=== PATIENT | female | born 1970 | race Caucasian/White ===

== ENCOUNTER → 2016-10-25 | Outpatient (CLI) | payer OTHER | LOC: RAD 09:49 | PROVIDERS: ATTEND Specialist | DX: M50.20 Other cervical disc displacement, unspecified cervical region (principal); M51.06 Intervertebral disc disorders with myelopathy, lumbar region | CPT/HCPCS: 72141; 72148 ==

== ENCOUNTER 2017-01-17 19:13 | Emergency (ER) | payer OTHER ==
[2017-01-17] MEDS ORDERED: PROMETHAZINE HCL 25 MG TABLET PO ONE (20:21)
[2017-01-17] MEDS ORDERED: KETOROLAC TROMETHAMINE 60 MG/2 ML SDV IM ONE (20:21)
--- NOTE | 2017-01-17 20:27 | ER Document Report ---
ED Medical Screen (RME) - General Chief Complaint: Flank Pain Stated Complaint: FLANK PAIN Notes: Patient experienced sudden onset of severe pain in her right flank and back area radiating around to the right abdomen about 6:45 PM this evening. She's been nauseated but hasn't vomited. Has a history of a kidney stone once previously with similar symptoms. Patient says the pain is easing off some at this time. No fevers. 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 She stopped her hormones about 2 weeks ago as her was about to deploy. She doesn't think it's likely that she could be , but there is the slightest possibility that she could be. TRAVEL OUTSIDE OF THE [place] IN LAST 30 DAYS: No - Related Data Allergies/Adverse Reactions: No Known Allergies Allergy (Unverified 01/17/17 19:29) Past Medical History Renal/ Medical History: Denies: Hx Peritoneal Dialysis Psychiatric Medical History: Reports: Hx Anxiety Past Surgical History: Reports: Hx Thyroid Surgery - Thyroid nodule removal Physical Exam - Vital signs Vitals: Temp Pulse Resp BP Pulse Ox 97.6 F 74 18 132/77 H 100 01/17/17 19:29 01/17/17 19:29 01/17/17 19:29 01/17/17 19:29 01/17/17 19:29 Course - Vital Signs Vital signs: Temp Pulse Resp BP Pulse Ox 97.6 F 74 18 132/77 H 100 01/17/17 19:29 01/17/17 19:29 01/17/17 19:29 01/17/17 19:29 01/17/17 19:29
[2017-01-17 20:45] LABS: APPEARANCE,URINE SLIGHTLY-CLOUDY; BILIRUBIN,URINE NEGATIVE (NEGATIVE); GLUCOSE, URINE NEGATIVE (NEGATIVE); KETONES,URINE TRACE mg/dL (NEGATIVE); LEUKOCYTE ESTERASE,URINE NEGATIVE (NEGATIVE); NITRITE,URINE NEGATIVE (NEGATIVE); PROTEIN,URINE 30 mg/dL (NEGATIVE); URINE SPECIFIC GRAVITY 1.021; UROBILINOGEN,URINE NEGATIVE mg/dL (<2.0)
--- NOTE | 2017-01-17 22:27 | ER Document Report ---
ED General - General Chief Complaint: Flank Pain Stated Complaint: FLANK PAIN Notes: Patient is a 46 show female presents with complaint of back pain to start around 7 PM. She says she came straight to ER. Pain then started radiating to the right and around the right flank. She received a shot of Toradol in triage. She says pain is much improved. She has some nausea but no vomiting. No fevers. She's never had pain like this. No history of abdominal surgeries. She does have a history of a liver hemangioma. No dysuria. No urinary frequency. She is not currently on her menstrual period. TRAVEL OUTSIDE OF THE [place] IN LAST 30 DAYS: No - Related Data Allergies/Adverse Reactions: No Known Allergies Allergy (Unverified 01/17/17 19:29) Past Medical History - Social History Smoking Status: Never Smoker Frequency of alcohol use: None Drug Abuse: None Family History: CVA, Other - [place] Patient has suicidal ideation: No Patient has homicidal ideation: No Renal/ Medical History: Denies: Hx Peritoneal Dialysis Psychiatric Medical History: Reports: Hx Anxiety Past Surgical History: Reports: Hx Thyroid Surgery - Thyroid nodule removal - Immunizations Hx Diphtheria, Pertussis, Tetanus Vaccination: Yes Review of Systems - Review of Systems Notes: My Normal Review Basic REVIEW OF SYSTEMS: CONSTITUTIONAL : Denies fever, chills, or sweats. Denies recent illness. RESPIRATORY: Denies cough, cold, or chest congestion. Denies shortness of breath, difficulty breathing, or wheezing. GASTROINTESTINAL: Denies abdominal pain. Denies nausea, vomiting, or diarrhea. Denies constipation. Last BM: GENITOURINARY: Right flank pain. FEMALE GENITOURINARY: Denies vaginal bleeding, abnormal or irregular periods. MUSCULOSKELETAL: Back pain SKIN: Denies rash or skin lesions. NEUROLOGICAL: Denies altered mental status or loss of consciousness. ALL OTHER SYSTEMS REVIEWED AND NEGATIVE. Physical Exam - Vital signs Vitals: Temp Pulse Resp BP Pulse Ox 97.6 F 74 18 132/77 H 100 01/17/17 19:29 01/17/17 19:29 01/17/17 19:29 01/17/17 19:29 01/17/17 19:29 - Notes Notes: General Appearance: Well nourished, alert, cooperative, no acute distress, no obvious discomfort. Well-appearing. Vitals: reviewed, See vital signs table. Head: no swelling or tenderness to the head Eyes: PERRL, EOMI, Conjuctiva clear Mouth: No decreasd moisturealy Lungs: No wheezing, No rales, No rhonci, No accessory muscle use, good air exchange bilaterally. Heart: Normal rate, Regular rythm, No murmur, no rub Abdomen: Normal BS, soft, No rigidity, very mild right flank pain to palpation. No reproducible anterior Abdominal tenderness to palpation, No guarding, no rebound, no abdominal masses, no organomegaly Back: No reproducible pain to palpation of the back. No rashes. Extremities: strength 5/5 in all extremities, good pulses in all extremities, no swelling or tenderness in the extremities, no edema. Skin: warm, dry, appropriate color, no rash Neuro: speech clear, oriented x 3, normal affect, responds appropriately to questions. Course - Vital Signs Vital signs: Temp Pulse Resp BP Pulse Ox 97.6 F 74 18 132/77 H 100 01/17/17 19:29 01/17/17 19:29 01/17/17 19:29 01/17/17 19:29 01/17/17 19:29 - Laboratory Result Diagrams: 01/17/17 23:30 01/17/17 23:30 Laboratory results interpreted by me: 01/17/17 01/17/17 20:24 23:30 Seg Neutrophils % 79.3 H Urine Protein 30 H Urine Ketones TRACE H Urine Blood LARGE H Urine Ascorbic Acid 40 H - Transfer of Care Notes: 01/18/17 00:33 The exact cause of the patient's pain is 100% clear. She does have some hematuria. Her pain is resolved. I suspect that she may have passed a small kidney stone. CT scan currently is negative. Her blood work is completely normal. I feel she is safe to be discharged home. I encourage her to follow up with her primary care doctor for reevaluation and repeat urinalysis to make sure that the blood is Cleared from her urine. Encourage return to ER immediately if she has worsening recurrent pain, vomiting, fevers, or feels unwell. Patient agrees with plan and will be discharged home. Dictation of this chart was performed using voice recognition software; therefore, there may be some unintended grammatical errors. Discharge - Discharge Clinical Impression: Flank pain, Hematuria Condition: Good Disposition: HOME, SELF-CARE Instructions: Oral Narcotic Medication ([facility]) Additional Instructions: Please follow up with your doctor on Thursday or Thursday for close reevaluation. Please return to the ER immediately if you develop fevers, worsening pain, vomiting, or feel unwell. Please have your doctor do a repeat urinalysis to make sure the blood in your urine is clearing. You can take the [place] as 1 tablet every 4 hours as needed for severe pain. Prescriptions: Ketorolac Tromethamine [Toradol 10 mg Tablet] 10 mg PO Q8HP PRN #12 tablet PRN Reason: Referrals: HELLEN POST MD [Primary Care Provider] - 01/19/17
[2017-01-17 23:57] LABS: ABSOLUTE LYMPHOCYTES (AUTO) 1.1 10^3/uL (0.5-4.7); ABSOLUTE MONOCYTES (AUTO) 0.6 10^3/uL (0.1-1.4); ABSOLUTE NEUT (AUTO) 6.6 10^3/uL (1.7-8.2); BASOPHILS % (AUTO) 0.2 % (0-2); EOSINOPHILS % (AUTO) 0.3 % (0-6); HEMATOCRIT 38.7 % (36.0-47.0); HEMOGLOBIN 13.2 g/dL (12.0-15.5); HGB HCT DIFFERENCE 0.9; LYMPHOCYTES % (AUTO) 13.5 % (13-45); MEAN CORPUSCULAR HEMOGLOBIN 31.2 pg (27.0-33.4); MEAN CORPUSCULAR HGB CONC 34.2 g/dL (32.0-36.0); MEAN CORPUSCULAR VOLUME 91 fl (80-97); MONOCYTES % (AUTO) 6.7 % (3-13); RED BLOOD COUNT 4.24 10^6/uL (3.72-5.28); RED CELL DISTRIBUTION WIDTH 12.1 % (11.5-14.0); SEGMENTED NEUTROPHILS % (AUTO) 79.3 % (42-78); WHITE BLOOD COUNT 8.3 10^3/uL (4.0-10.5)
[2017-01-18 00:09] LABS: ALANINE AMINOTRANSFERASE 26 U/L (9-52); ALBUMIN 4.5 g/dL (3.5-5.0); ALKALINE PHOSPHATASE 41 U/L (38-126); ANION GAP 12 (5-19); ASPARTATE AMINO TRANSFERASE 22 U/L (14-36); BILIRUBIN,TOTAL 1.3 mg/dL (0.2-1.3); BLOOD UREA NITROGEN 19 mg/dL (7-20); CALCIUM 9.1 mg/dL (8.4-10.2); CARBON DIOXIDE 27 mmol/L (22-30); CHLORIDE 102 mmol/L (98-107); CREATININE RESULT 0.63 mg/dL (0.52-1.25); GLUCOSE 90 mg/dL (75-110); POTASSIUM 4.1 mmol/L (3.6-5.0); SODIUM 140.8 mmol/L (137-145); TOTAL PROTEIN 6.9 g/dL (6.3-8.2)
[2017-01-18] MEDS ORDERED: HYDROCODONE/ACETAMINOPHEN 5-325 MG 6 TAB/DSPK PO PRN (00:32)
[2017-01-18] MEDS ORDERED: ONDANSETRON ODT 4 MG TAB (6 TAB/DSPK) PO PRN (00:32)
[2017-01-18 00:44] VITALS: BP 104/69
== END 2017-01-18 00:46 | disposition home or self-care (01) ==
LOC: ER 19:13
DX: R10.9 Unspecified abdominal pain (principal); R31.9 Hematuria, unspecified
CPT/HCPCS: 99284; 96372; 36415; 87086; 85025; 81025; 80053; 81001; 76380; J1885

== ENCOUNTER 2017-02-13 01:20 | Emergency (ER) | payer OTHER ==
[2017-02-13] MEDS ORDERED: NORMAL SALINE 1000 ML 1,000 ML IV ONE ×2 (01:31→07:27)
[2017-02-13] MEDS ORDERED: ONDANSETRON HCL INJ/PF 4 MG/2 ML SDV IV ONE ×3 (01:31→07:27)
[2017-02-13 02:07] LABS: ABSOLUTE EOSINOPHILS # (AUTO) 0.1 10^3/uL (0.0-0.6); ABSOLUTE LYMPHOCYTES (AUTO) 1.8 10^3/uL (0.5-4.7); ABSOLUTE MONOCYTES (AUTO) 1.5 10^3/uL (0.1-1.4); ABSOLUTE NEUT (AUTO) 15.7 10^3/uL (1.7-8.2); BASOPHILS % (AUTO) 0.2 % (0-2); EOSINOPHILS % (AUTO) 0.3 % (0-6); HEMATOCRIT 39.3 % (36.0-47.0); HEMOGLOBIN 13.1 g/dL (12.0-15.5); LYMPHOCYTES % (AUTO) 9.4 % (13-45); MEAN CORPUSCULAR HEMOGLOBIN 30.6 pg (27.0-33.4); MEAN CORPUSCULAR HGB CONC 33.3 g/dL (32.0-36.0); MEAN CORPUSCULAR VOLUME 92 fl (80-97); MONOCYTES % (AUTO) 7.6 % (3-13); RED BLOOD COUNT 4.28 10^6/uL (3.72-5.28); RED CELL DISTRIBUTION WIDTH 12.2 % (11.5-14.0); SEGMENTED NEUTROPHILS % (AUTO) 82.5 % (42-78); WHITE BLOOD COUNT 19.1 10^3/uL (4.0-10.5)
[2017-02-13 02:24] LABS: ALANINE AMINOTRANSFERASE 28 U/L (9-52); ALBUMIN 4.2 g/dL (3.5-5.0); ALKALINE PHOSPHATASE 43 U/L (38-126); ANION GAP 13 (5-19); ASPARTATE AMINO TRANSFERASE 19 U/L (14-36); BILIRUBIN,DIRECT 0.3 mg/dL (0.0-0.4); BILIRUBIN,TOTAL 1.2 mg/dL (0.2-1.3); BLOOD UREA NITROGEN 22 mg/dL (7-20); CALCIUM 9.3 mg/dL (8.4-10.2); CARBON DIOXIDE 27 mmol/L (22-30); CHLORIDE 101 mmol/L (98-107); CREATININE RESULT 0.94 mg/dL (0.52-1.25); GLUCOSE 136 mg/dL (75-110); POTASSIUM 4.1 mmol/L (3.6-5.0); SODIUM 140.5 mmol/L (137-145); TOTAL PROTEIN 6.7 g/dL (6.3-8.2)
[2017-02-13] MEDS ORDERED: ACETAMINOPHEN 325 MG TABLET PO ONE (02:31)
[2017-02-13 02:49] LABS: APPEARANCE,URINE CLOUDY; BILIRUBIN,URINE SMALL (NEGATIVE); GLUCOSE, URINE NEGATIVE (NEGATIVE); KETONES,URINE NEGATIVE (NEGATIVE); PROTEIN,URINE 30 mg/dL (NEGATIVE); URINE SPECIFIC GRAVITY 1.034; UROBILINOGEN,URINE NEGATIVE mg/dL (<2.0)
[2017-02-13 02:50] LABS: LEUKOCYTE ESTERASE,URINE NEGATIVE (NEGATIVE); NITRITE,URINE NEGATIVE (NEGATIVE); RBC,URINE 0-1 /HPF; WBC,URINE NONE SEEN /HPF
[2017-02-13] MEDS ORDERED: MORPHINE SULFATE 10 MG/ML INJ IV ONE ×2 (04:16→06:17)
--- NOTE | 2017-02-13 04:17 | ER Document Report ---
ED GI/ - General Mode of Arrival: Ambulatory Information source: Patient TRAVEL OUTSIDE OF THE [place] IN LAST 30 DAYS: No <CARMEN LINDER - Last Filed: 02/13/17 07:23> <JC GILLILAND - Last Filed: 02/13/17 10:02> - General Chief Complaint: Vomiting/Diarrhea Stated Complaint: ABDOMINAL PAIN Time Seen by Provider: 02/13/17 03:55 Notes: Pt is a 46 year old female who presents to the ER today for abdominal pain in the right lower quadrant radiating to the right lower back that began today and is getting worse. She has had multiple episodes of nausea, vomiting and diarrhea with the pain. She denies fever or chills that she knows of. She admits to 1 month of pressure with urination, but denies abnormal vaginal discharge or dysuria, hematuria. She has a history of kidney stones but states that this does not feel like that. (CARMEN LINDER) - Related Data Allergies/Adverse Reactions: No Known Allergies Allergy (Verified 02/13/17 01:25) Home Medications: Current Home Medications Levothyroxine Sodium [Synthroid] 1 tab PO DAILY 02/13/17 [History] Norethindrone AC-Eth Estradiol [Junel 1 mg-20 Mcg Tablet] 1 tab PO DAILY [History] Rosuvastatin Calcium [Crestor 5 mg Tablet] 1 tab PO DAILY 02/13/17 [History] Past Medical History - General Information source: Patient - Social History Smoking Status: Unknown if Ever Smoked Family History: CVA, Other - [place] Patient has suicidal ideation: No Patient has homicidal ideation: No Renal/ Medical History: Denies: Hx Peritoneal Dialysis Psychiatric Medical History: Reports: Hx Anxiety Past Surgical History: Reports: Hx Thyroid Surgery - Thyroid nodule removal - Immunizations Hx Diphtheria, Pertussis, Tetanus Vaccination: Yes <CARMEN LINDER - Last Filed: 02/13/17 07:23> Review of Systems - Review of Systems Constitutional: No symptoms reported EENT: No symptoms reported Cardiovascular: No symptoms reported Respiratory: No symptoms reported Gastrointestinal: See HPI Genitourinary: No symptoms reported Female Genitourinary: See HPI Musculoskeletal: No symptoms reported Skin: No symptoms reported Hematologic/Lymphatic: No symptoms reported Neurological/Psychological: No symptoms reported <CARMEN LINDER - Last Filed: 02/13/17 07:23> Physical Exam <CARMEN LINDER - Last Filed: 02/13/17 07:23> <JC GILLILAND - Last Filed: 02/13/17 10:02> - Vital signs Vitals: Temp Pulse Resp BP Pulse Ox 97.8 F 72 16 127/80 H 98 02/13/17 01:27 02/13/17 01:27 02/13/17 01:27 02/13/17 01:27 02/13/17 01:27 - Notes Notes: PHYSICAL EXAMINATION: GENERAL: Obviously uncomfortable, but in no acute distress. HEAD: Atraumatic, normocephalic. EYES: Pupils equal round and reactive to light, extraocular movements intact, sclera anicteric, conjunctiva are normal. NECK: Normal range of motion, supple without lymphadenopathy LUNGS: CTAB and equal. No wheezes rales or rhonchi. HEART: Regular rate and rhythm without murmurs ABDOMEN: Soft, mild to moderate right lower quadrant tenderness. No guarding, no rebound BACK: no vertebral tenderness, normal ROM GI/: no CVA tenderness Pelvic: Normal tenderness to exam, white discharge in vaginal canal, normal cervix EXTREMITIES: Normal range of motion, no pitting edema. No cyanosis. NEUROLOGICAL: Cranial nerves grossly intact. Normal sensory/motor exams. PSYCH: Normal mood, normal affect. SKIN: Warm, Dry, normal turgor, no rashes or lesions noted (CARMEN LINDER) Course - Laboratory Result Diagrams: 02/13/17 01:50 02/13/17 01:50 <CARMEN LINDER - Last Filed: 02/13/17 07:23> - Laboratory Result Diagrams: 02/13/17 01:50 02/13/17 01:50 <JC GILLILAND - Last Filed: 02/13/17 10:02> - Re-evaluation Re-evalutation: 02/13/17 05:19 Patient has a white blood cell count of 19.1 although she is afebrile. Urinalysis reveals no blood and no evidence of infection.awaiting CT abd report and US report 02/13/17 07:05 02/13/17 07:23 Dr. Munoz, radiologist called and gives verbal report that pt has 0.4cm stone in right ureter with moderate-grade obstruction. (CARMEN LINDER) 02/13/17 Patient reports that pain has resolved at present. Discussed results of patient 's diagnostic test results with her. Patient given a copy of her imaging studies as well as laboratory reports. Patient does have an appointment with her urologist later today. (JC GILLILAND) - Vital Signs Vital signs: Temp Pulse Resp BP Pulse Ox 98.0 F 86 20 100/67 99 02/13/17 09:25 02/13/17 09:25 02/13/17 04:30 02/13/17 09:25 02/13/17 09:25 - Laboratory Laboratory results interpreted by me: 02/13/17 02/13/17 02/13/17 01:50 01:50 01:50 WBC 19.1 H Seg Neutrophils % 82.5 H Lymphocytes % 9.4 L Absolute Neutrophils 15.7 H Absolute Monocytes 1.5 H BUN 22 H Glucose 136 H Urine Protein 30 H Urine Bilirubin SMALL H Urine Ascorbic Acid 40 H Discharge <CARMEN LINDER - Last Filed: 02/13/17 07:23> <JC GILLILAND - Last Filed: 02/13/17 10:02> - Discharge Clinical Impression: Kidney stone, Bacterial vaginosis Condition: Stable Disposition: HOME, SELF-CARE Instructions: Kidney Stone ([facility]), Vaginosis, Bacterial ([facility]) Additional Instructions: Return immediately for any new or worsening symptoms. Follow up with primary care provider, call tomorrow to make followup appointment. Prescriptions: Cephalexin Monohydrate [Keflex 500 mg Capsule] 500 mg PO Q6H 5 Days Metronidazole [Flagyl 500 mg Tablet] 500 mg PO Q6H #28 tablet Ondansetron [Zofran Odt 4 mg Tablet] 1 - 2 tab PO Q4H PRN #30 tab.rapdis PRN Reason: For Nausea/Vomiting Oxycodone HCl/Acetaminophen [Percocet 5-325 mg Tablet] 1 - 2 tab PO Q4H PRN #25 tablet PRN Reason: Tamsulosin HCl [Flomax 0.4 mg Cap.sr] 0.4 mg PO DAILY #7 cap.sr.24h Forms: Return to Work Referrals: HELLEN POST MD [Primary Care Provider] - Follow up as needed
[2017-02-13 07:06] LABS: CHLAM PCR NOT DETECTED (NOT DETECT)
[2017-02-13] MEDS ORDERED: KETOROLAC TROMETHAMINE INJ/PF 30 MG/1 ML SDV IV ONE (07:27)
[2017-02-13] MEDS ORDERED: ONDANSETRON ODT 4 MG TAB (6 TAB/DSPK) PO PRN (07:27)
[2017-02-13 09:29] VITALS: BP 100/67
== END 2017-02-13 09:33 | disposition home or self-care (01) ==
LOC: ER 01:20
DX: N13.2 Hydronephrosis with renal and ureteral calculous obstruction (principal); N76.0 Acute vaginitis; B96.89 Other specified bacterial agents as the cause of diseases classified elsewhere; R10.31 Right lower quadrant pain; R11.2 Nausea with vomiting, unspecified; R19.7 Diarrhea, unspecified
CPT/HCPCS: 96376; 99284; 96361; 96374; 96375; 36415; 87210; 85025; 80053; 81001; 87491; 87591; 76830; 93976; 74177; J1885; J2270; J2405; J7030

== ENCOUNTER → 2017-02-24 | Outpatient (CLI) | payer OTHER ==
[2017-02-24 16:08] LABS: ABSOLUTE EOSINOPHILS # (AUTO) 0.1 10^3/uL (0.0-0.6); ABSOLUTE LYMPHOCYTES (AUTO) 1.5 10^3/uL (0.5-4.7); ABSOLUTE MONOCYTES (AUTO) 0.6 10^3/uL (0.1-1.4); ABSOLUTE NEUT (AUTO) 4.2 10^3/uL (1.7-8.2); BASOPHILS % (AUTO) 0.6 % (0-2); EOSINOPHILS % (AUTO) 1.2 % (0-6); HEMATOCRIT 39.2 % (36.0-47.0); HEMOGLOBIN 13.5 g/dL (12.0-15.5); HGB HCT DIFFERENCE 1.3; MEAN CORPUSCULAR HEMOGLOBIN 31.5 pg (27.0-33.4); MEAN CORPUSCULAR HGB CONC 34.4 g/dL (32.0-36.0); MEAN CORPUSCULAR VOLUME 92 fl (80-97); MONOCYTES % (AUTO) 9.3 % (3-13); RED BLOOD COUNT 4.28 10^6/uL (3.72-5.28); RED CELL DISTRIBUTION WIDTH 11.9 % (11.5-14.0); SEGMENTED NEUTROPHILS % (AUTO) 64.9 % (42-78); WHITE BLOOD COUNT 6.4 10^3/uL (4.0-10.5)
== END ==
LOC: OD 15:39
PROVIDERS: ATTEND Specialist
DX: D72.819 Decreased white blood cell count, unspecified (principal)
CPT/HCPCS: 36415; 85025

== ENCOUNTER → 2017-04-24 | Outpatient (CLI) | payer OTHER ==
[2017-04-24 13:27] LABS: FOLATE 18.2 ng/mL (>2.76)
== END ==
LOC: OD 10:36
PROVIDERS: ATTEND Specialist
DX: G62.9 Polyneuropathy, unspecified (principal); G35 Multiple sclerosis
CPT/HCPCS: 36415; 82550; 82607; 82746; 84146; 85652; 86038

== ENCOUNTER → 2017-04-29 | Outpatient (CLI) | payer OTHER ==
--- NOTE | 2017-04-30 08:58 | RADIOLOGY REPORT (SQ) ---
EXAM DESCRIPTION: MRI HEAD COMBO COMPLETED DATE/TIME: 04/29/2017 5:49 pm REASON FOR STUDY: Polyneuropathy, unspecified, Multiple sclerosis G62.9 POLYNEUROPATHY, UNSPECIFIED COMPARISON: 08/19/2010 TECHNIQUE: Multiplanar imaging includes noncontrasted T1, T2, FLAIR, diffusion with ADC map and post gadolinium contrast T1 sequences. Images stored on PACS. CONTRAST TYPE AND DOSE: 13 mL Multihance. RENAL FUNCTION: GFR > 60. LIMITATIONS: None. FINDINGS: ANATOMY: No anomalies. Normal vascular flow voids. Pituitary fossa normal. CSF SPACES: Normal in size and contour. No hemorrhage. CEREBRUM: Sulci and gyri normal in size and contour. Normal white matter signal on FLAIR imaging. No evidence of hemorrhage, mass, or extraaxial fluid collection. No abnormal enhancement post contrast. POSTERIOR FOSSA: No signal alteration. No hemorrhage. No edema, masses, or mass effect. Internal jesús tory canals, cerebellopontine angles, mastoids normal. No enhancing lesions. No abnormal enhancement post contrast. DIFFUSION IMAGING: Negative for acute or subacute infarction. ORBITS: No masses. Globes normal. PARANASAL SINUSES: No fluid levels. Mucosa normal. OTHER: No other significant finding. IMPRESSION: Normal brain. EVIDENCE OF ACUTE STROKE: NO. TECHNICAL DOCUMENTATION: JOB ID: [id number] [employer]- All Rights Reserved
== END ==
LOC: RAD 16:41
PROVIDERS: ATTEND Specialist
DX: G62.9 Polyneuropathy, unspecified (principal); G35 Multiple sclerosis
CPT/HCPCS: 70553; A9577

== ENCOUNTER → 2017-10-19 | Outpatient (CLI) | payer OTHER ==
--- NOTE | 2017-10-20 08:41 | RADIOLOGY REPORT (SQ) ---
EXAM DESCRIPTION: CAROTID DOPPLER COMPLETED DATE/TIME: 10/19/2017 3:52 pm REASON FOR STUDY: OCCLUSION/STENOSIS I65.29 OCCLUSION AND STENOSIS OF UNSPECIFIED CAROTID ARTERY COMPARISON: MRI brain 10/19/2009, 04/29/2017 MRI cervical spine 10/25/2016 TECHNIQUE: Grayscale ultrasound, Doppler velocity and spectra, and color Doppler images acquired of the extra-cranial carotid and vertebral arteries. Images stored on PACS. LIMITATIONS: None. FINDINGS: RIGHT CAROTID CCA Velocities: Within normal limits. ICA Velocities Peak systolic 0.66 m/s. End diastolic 0.24 m/s. Proximal ICA/CCA peak systolic ratio normal. Spectra normal. No significant plaque. LEFT CAROTID CCA Velocities: Within normal limits. ICA Velocities Peak systolic 0.55 m/s. End diastolic 0.22 m/s. Proximal ICA/CCA peak systolic ratio normal. Spectra normal. No significant plaque. VERTEBRAL ARTERIES: Antegrade flow. Normal waveforms. SUBCLAVIAN ARTERIES: Not evaluated OTHER: No other significant finding. IMPRESSION: NO HEMODYNAMICALLY SIGNIFICANT STENOSIS. COMMENT: Quality ID #[id number]: Velocity criteria are extrapolated from the diameter data as defined by t he Society of Radiologists in Ultrasound Consensus Conference. Radiology 2003: 229; 340-346. TECHNICAL DOCUMENTATION: JOB ID: [id number] [employer]- All Rights Reserved
== END ==
LOC: SP 14:48
PROVIDERS: ATTEND Internal Medicine Cardiovascular Disease
DX: I65.29 Occlusion and stenosis of unspecified carotid artery (principal)
CPT/HCPCS: 93880